=== PATIENT | female | born 1995 | race Caucasian/White ===

== ENCOUNTER 2021-11-13 12:25 | Observation (INO) | payer OTHER, BC ==
[~2021-11-13 12:25] MED LIST: Bupivacaine 0.25% 10 ML SDV ONE
[2021-11-13] MEDS ORDERED: Sodium Chloride 0.9% 10 ML Syringe FLUSH PRN (12:35)
[2021-11-13] MEDS ORDERED: Ondansetron 4 MG/2 ML SDV IVPUSH PRN (12:35)
[2021-11-13] MEDS ORDERED: Nalbuphine HCl 10 MG/ 1ML Amp IVPUSH PRN (12:35)
[2021-11-13] MEDS ORDERED: Lidocaine 1% 50 ML MDV INJECT ONE (12:35)
[2021-11-13] MEDS ORDERED: Oxytocin/Lactated Ringers 10 UNIT/1,000 ML BAG IV SCH ×2 (12:45)
[2021-11-13] MEDS ORDERED: Misoprostol 200 MCG Tab VAG STA (13:05)
[2021-11-13] MEDS: Acetaminophen 325 MG Tab PO PRN ×2 (15:12→22:35)
[2021-11-13 15:56] VITALS: BP 113/77; PULSE 75
[2021-11-13] MEDS: Misoprostol 200 MCG Tab VAG SCH ×2 (17:30→21:36)
[2021-11-13] MEDS: Lactated Ringers 1,000 ML IV SCH ×3 (19:26→21:31)
[2021-11-13] MEDS ORDERED: diphenhydrAMINE 50 MG/ML SDV IVPUSH PRN (20:36)
[2021-11-13] MEDS ORDERED: fentaNYL 100 MCG/2 ML SDV EPIDUR PRN (20:36)
[2021-11-13] MEDS ORDERED: ePHEDrine 50 MG/ML SDV IVPUSH PRN (20:36)
[2021-11-13] MEDS: Bupivacaine/fentaNYL/NS 100 ML Bag EPIDUR PRN (20:43)
[2021-11-14] MEDS ORDERED: Ibuprofen 600 MG Tab PO PRN (01:10)
[2021-11-14] MEDS: Misoprostol 200 MCG Tab VAG SCH ×3 (01:42→13:10)
[2021-11-14] MEDS: Lactated Ringers 1,000 ML IV SCH (01:43)
[2021-11-14] MEDS: Sodium Chloride 0.9% 10 ML Syringe FLUSH SCH ×2 (01:57→13:09)
[2021-11-14] MEDS: Bupivacaine/fentaNYL/NS 100 ML Bag EPIDUR PRN (05:26)
[2021-11-14] MEDS: Acetaminophen 325 MG Tab PO PRN (05:29)
[2021-11-14] MEDS ORDERED: Misoprostol 200 MCG Tab PO STA (07:28)
== END 2021-11-14 16:45 | disposition home or self-care (01) ==
LOC: JD.OB 12:25
PROVIDERS: ADMIT Obstetrics & Gynecology; ATTEND Obstetrics & Gynecology
DX: O80 Encounter for full-term uncomplicated delivery (principal); O99.52 Diseases of the respiratory system complicating childbirth; J45.909 Unspecified asthma, uncomplicated; Z37.1 Single stillbirth; Z3A.24 24 weeks gestation of pregnancy
CPT/HCPCS: 36415; 51702; 59409; 85025; 86592; 86850; 86900; 86901; A9270; C1726; J3010; J3490; J7120

== ENCOUNTER 2022-11-11 06:59 | Inpatient (IN) | payer BC ==
[~2022-11-11 06:59] MED LIST changes: -Bupivacaine 0.25% 10 ML SDV ONE; +Ropivacaine 0.2% PF 2 MG/ML 20 ML SDV ONE
[2022-11-11] MEDS ORDERED: Sodium Chloride 0.9% 10 ML Syringe FLUSH PRN (07:02)
[2022-11-11] MEDS ORDERED: Nalbuphine 10 MG/0.5 ML Syringe IVPUSH PRN (07:02)
[2022-11-11] MEDS ORDERED: Ondansetron 4 MG/2 ML SDV IVPUSH PRN (07:02)
[2022-11-11] MEDS ORDERED: Oxytocin/Lactated Ringers 10 UNIT/1,000 ML BAG IV SCH ×2 (07:15)
[2022-11-11 07:27] LABS: HEMATOCRIT 35.8 % (34.1-44.9); MEAN CORPUSCULAR HEMOGLOBIN 30.5 pg (25.6-32.2); MEAN CORPUSCULAR HGB CONC 33.5 g/dl (32.2-35.5); MEAN CORPUSCULAR VOLUME 90.9 fl (79.4-94.8); MEAN PLATELET VOLUME 9.6 fl (9.4-12.3); PLATELET COUNT,PLT 242 K/mm3 (182-369); RED BLOOD CELL COUNT 3.94 M/mm3 (3.98-5.22); WHITE BLOOD CELL COUNT,WBC 11.36 K/mm3 (3.98-10.04)
[2022-11-11] MEDS: Lactated Ringers 1,000 ML IV SCH ×2 (07:40→13:38)
[2022-11-11] MEDS ORDERED: Sodium Chloride 0.9% 10 ML Syringe FLUSH SCH (09:00)
[2022-11-11] MEDS ORDERED: fentaNYL 100 MCG/2 ML SDV EPIDUR PRN (13:36)
[2022-11-11] MEDS ORDERED: diphenhydrAMINE 50 MG/ML SDV IVPUSH PRN (13:36)
[2022-11-11] MEDS ORDERED: ePHEDrine 50 MG/ML SDV IVPUSH PRN (13:36)
[2022-11-11] MEDS ORDERED: Bupivacaine/fentaNYL/NS 100 ML Bag EPIDUR PRN (13:36)
[2022-11-11] MEDS ORDERED: Docusate Sodium 100 MG Cap PO PRN (20:44)
[2022-11-11] MEDS ORDERED: Witch Hazel Medicated Pads 40/Jar TOP PRN (20:44)
[2022-11-11] MEDS ORDERED: Benzocaine/Menthol 20%-0.5% Spray 78 GM Cannister TOP PRN (20:44)
[2022-11-11] MEDS: Ibuprofen 600 MG Tab PO PRN (22:30)
[2022-11-12] MEDS: Ibuprofen 600 MG Tab PO PRN ×3 (06:03→19:59)
[2022-11-12] MEDS: Acetaminophen 325 MG Tab PO PRN ×3 (06:04→20:00)
[2022-11-13] MEDS: Acetaminophen 325 MG Tab PO PRN (05:02)
[2022-11-13] MEDS: Ibuprofen 600 MG Tab PO PRN (05:03)
[2022-11-13 09:04] VITALS: BP 123/74; PULSE 86
== END 2022-11-13 12:25 | disposition home or self-care (01) | DRG 560 ==
LOC: JD.OB 06:59 → OBSVTOIN 20:12 → JD.OB 20:13
PROVIDERS: ADMIT Obstetrics & Gynecology; ATTEND Obstetrics & Gynecology
PROC: 10907ZC Drainage of Amniotic Fluid, Therapeutic from Products of Conception, Via Natural or Artificial Opening (ICD-10-PCS; principal; 2022-11-11)
PROC: 0KQM0ZZ Repair Perineum Muscle, Open Approach (ICD-10-PCS; principal; 2022-11-11)
PROC: 3E033VJ Introduction of Other Hormone into Peripheral Vein, Percutaneous Approach (ICD-10-PCS; principal; 2022-11-11)
PROC: 10E0XZZ Delivery of Products of Conception, External Approach (ICD-10-PCS; principal; 2022-11-11)
DX: O70.1 Second degree perineal laceration during delivery (principal); Z37.0 Single live birth; Z3A.39 39 weeks gestation of pregnancy
CPT/HCPCS: 36415; 51702; 59025; 59409; 85027; 86592; 86850; 86900; 86901; A9270-GY; J2590; J2795; J3490; J7120

== ENCOUNTER 2025-05-13 06:49 | Inpatient (IN) | payer OTHER ==
[2025-05-13] MEDS ORDERED: Nalbuphine 10 MG/1 ML Vial IVPUSH PRN (07:02)
[2025-05-13] MEDS ORDERED: Ondansetron 4 MG/2 ML SDV IVPUSH PRN (07:02)
[2025-05-13] MEDS ORDERED: Sodium Chloride 0.9% 10 ML Syringe FLUSH PRN (07:02)
[2025-05-13] MEDS ORDERED: Oxytocin/0.9 % Sodium Chloride 30 UNIT/500 ML BAG IV SCH (07:15)
[2025-05-13 07:21] LABS: BASOPHILS ABSOLUTE AUTO 0.1 K/mm3 (0.0-0.2); BASOPHILS PERCENT AUTO 0.5 % (0.0-1.0); EOSINOPHILS ABSOLUTE AUTO 0.3 K/mm3 (0.0-0.4); EOSINOPHILS PERCENT AUTO 2.8 % (0.0-6.0); IMMATURE GRAN ABSOLUTE AUTO 0.04 K/mm3 (0.00-0.05); IMMATURE GRAN PERCENT AUTO 0.4 % (0.0-0.4); LYMPHOCYTES ABSOLUTE AUTO 1.6 K/mm3 (1.0-4.8); LYMPHOCYTES PERCENT AUTO 14.3 % (24.0-44.0); MEAN PLATELET VOLUME 9.9 fl (9.4-12.3); MONOCYTES ABSOLUTE AUTO 0.9 K/mm3 (0.0-0.8); MONOCYTES PERCENT AUTO 7.8 % (0.0-8.0); NEUTROPHILS ABSOLUTE AUTO 8.1 K/mm3 (1.8-7.7); NEUTROPHILS PERCENT AUTO 74.2 % (41.0-71.0); NRBC ABSOLUTE 0.00 (0.00-0.02); NRBC PERCENT 0.0 % (0.0-0.2); PLATELET COUNT,PLT 241 K/mm3 (150-400); RED BLOOD CELL COUNT 3.84 M/mm3 (4.10-5.30); WHITE BLOOD CELL COUNT,WBC 10.85 K/mm3 (3.9-11.3)
[2025-05-13] MEDS: Lactated Ringers 1,000 ML IV SCH (07:30)
[2025-05-13] MEDS: Oxytocin/0.9 % Sodium Chloride 30 UNIT/500 ML BAG IV SCH (07:32)
[2025-05-13] MEDS ORDERED: diphenhydrAMINE 50 MG/ML SDV IVPUSH PRN (11:58)
[2025-05-13] MEDS: Bupivacaine/fentaNYL/NS 100 ML Bag EPIDUR PRN (12:20)
[2025-05-13] MEDS: ePHEDrine 50 MG/ML SDV IVPUSH PRN (16:36)
[2025-05-13] MEDS: Ondansetron 4 MG/2 ML SDV IVPUSH PRN (18:46)
[2025-05-13] MEDS: Witch Hazel Medicated Pads 40/Jar TOP PRN (18:56)
[2025-05-13] MEDS: Benzocaine/Menthol 20%-0.5% Spray 78 GM Cannister TOP PRN (18:57)
[2025-05-13] MEDS: Sodium Chloride 0.9% 10 ML Syringe FLUSH SCH (20:20)
[2025-05-14 16:56] VITALS: BP 121/81; PULSE 72
== END 2025-05-14 18:05 | disposition home or self-care (01) | DRG 807 ==
LOC: JD.OB 06:49 → OBSVTOIN 17:05 → JD.OB 17:05
PROVIDERS: ADMIT Obstetrics & Gynecology; ATTEND Obstetrics & Gynecology
PROC: 10D07Z6 Extraction of Products of Conception, Vacuum, Via Natural or Artificial Opening (ICD-10-PCS; principal; 2025-05-13)
PROC: 3E0R3BZ Introduction of Anesthetic Agent into Spinal Canal, Percutaneous Approach (ICD-10-PCS; principal; 2025-05-13)
PROC: 3E033VJ Introduction of Other Hormone into Peripheral Vein, Percutaneous Approach (ICD-10-PCS; principal; 2025-05-13)
PROC: 10907ZC Drainage of Amniotic Fluid, Therapeutic from Products of Conception, Via Natural or Artificial Opening (ICD-10-PCS; principal; 2025-05-13)
DX: O66.0 Obstructed labor due to shoulder dystocia (principal); Z37.0 Single live birth; Z3A.39 39 weeks gestation of pregnancy; Z86.16 Personal history of COVID-19; Z98.890 Other specified postprocedural states; Z79.899 Other long term (current) drug therapy
CPT/HCPCS: 01967; 36415; 51702; 59025; 59409; 85025; 86592; 86850; 86900; 86901; A9270-GY; J2210; J2405; J3490; J7120; J7999